=== PATIENT | female | born 1995 | race Caucasian/White ===

== ENCOUNTER → 2022-02-09 11:15 | Outpatient (BNVA) | payer BC, SELFPAY | PROVIDERS: Family Provider Nurse Practitioner Family; PCP Nurse Practitioner; Visit Provider Nurse Practitioner Family | DX: J02.9 Acute pharyngitis, unspecified (principal); R68.89 Other general symptoms and signs; H65.111 Acute and subacute allergic otitis media (mucoid) (sanguinous) (serous), right ear; B34.9 Viral infection, unspecified | CPT/HCPCS: 87400; 87880 ==